=== PATIENT | female | born 1945 | race Caucasian/White ===

== ENCOUNTER 2020-12-30 17:18 | Emergency (ER) | payer MEDICARE ==
--- NOTE | 2020-12-30 18:52 | EDM.PDOC ---
ED HPI GENERAL MEDICAL PROBLEM - General Chief Complaint: ENT Problem Stated Complaint: NOSE BLEED Time Seen by Provider: 12/30/20 18:35 Source of Information: Reports: Patient History Limitations: Reports: No Limitations - History of Present Illness INITIAL COMMENTS - FREE TEXT/NARRATIVE: 75-year-old female with recurring left-sided epistaxis had a cauterization done at the clinic this morning. She had a recurrence of bleeding this afternoon that she did get stopped, but she went into the clinic to have it looked at to make sure everything was okay and they sent her to the emergency room. Onset: Unknown/Unsure Duration: Other (Nosebleeds have been chronic, increased in the last month) Location: Reports: Other (Left nares) Associated Symptoms: Reports: No Other Symptoms. Denies: Chest Pain, Shortness of Breath - Related Data Allergies Allergy/AdvReac Type Severity Reaction Status Date / Time codeine Allergy Hallucinati Verified 12/30/20 18:26 ons Home Meds: Home Meds Lovastatin 10 mg PO BEDTIME 12/30/20 [History] lisinopriL [Lisinopril] 10 mg PO DAILY 12/30/20 [History] Past Medical History HEENT History: Reports: Epistaxis, Impaired Vision Cardiovascular History: Reports: High Cholesterol, Hypertension [employer] History: Reports: Polycystic Ovaries, - Past Surgical History Female Surgical History: Reports: Section Musculoskeletal Surgical History: Reports: Arthroscopic Knee Social & Family History - Tobacco Use Tobacco Use Status *Q: Never Tobacco User ED ROS ENT - Review of Systems Review Of Systems: See Below Constitutional: Denies: Fever, Chills HEENT: Reports: Other (Left-sided epistaxis, responded to pressure) ED EXAM, ENT - Physical Exam Exam: See Below Exam Limited By: No Limitations General Appearance: Alert, No Apparent Distress Ears: Other (Exam of the nares shows no active bleeding, the left nares does have recent cauterization on the medial aspect.) Head: Atraumatic Respiratory/Chest: No Respiratory Distress, Lungs Clear Course - Vital Signs Last Recorded V/S: Last Vital Signs Temp 98.0 F 12/30/20 18:34 Pulse 94 12/30/20 18:34 Resp 16 12/30/20 18:34 BP 170/108 H 12/30/20 18:34 Pulse Ox 94 L 12/30/20 18:34 Departure - Departure Time of Disposition: 18:59 Disposition: Home, Self-Care 01 Clinical Impression: Left-sided epistaxis - Discharge Information Instructions: Nosebleed, [id number] Referrals: Amanda Knox PA-C [Primary Care Provider] - Forms: ED Department Discharge Care Plan Goals: Reapply pressure if needed if bleeding recurs, return if bleeding is persistent despite efforts to get it stopped. Sepsis Event Note (ED) - Evaluation Sepsis Screening Result: No Definite Risk
== END 2020-12-30 18:59 | disposition home or self-care (01) ==
LOC: JP.ED 17:18
DX: R04.0 Epistaxis (principal); E78.00 Pure hypercholesterolemia, unspecified; I10 Essential (primary) hypertension; Z79.899 Other long term (current) drug therapy; Z88.5 Allergy status to narcotic agent
CPT/HCPCS: 99283

== ENCOUNTER 2022-01-23 09:52 | Emergency (ER) | payer MEDICARE ==
[2022-01-23] MEDS ORDERED: Aspirin 81 MG Tab.Chew PO ONE (10:58)
[2022-01-23 11:34] LABS: TROPONIN I HIGH SENSITIVITY 6.1 pg/mL (<=60.3)
== END 2022-01-23 12:31 | disposition home or self-care (01) ==
LOC: JP.ED 09:52
DX: R07.89 Other chest pain (principal); I10 Essential (primary) hypertension; Z79.899 Other long term (current) drug therapy; Z88.5 Allergy status to narcotic agent
CPT/HCPCS: 36415; 71046; 71046-26; 80048; 84484; 85025; 93005; 93010; 99282; 99285-25; A9270-GY

== ENCOUNTER 2023-02-20 16:21 | Emergency (ER) | payer MEDICARE ==
[2023-02-20] MEDS ORDERED: Acetaminophen 325 MG Tab PO ONE (17:09)
== END 2023-02-20 18:30 | disposition home or self-care (01) ==
LOC: JP.ED 16:21
DX: S82.831A Other fracture of upper and lower end of right fibula, initial encounter for closed fracture (principal); S80.211A Abrasion, right knee, initial encounter; E78.00 Pure hypercholesterolemia, unspecified; I10 Essential (primary) hypertension; Z79.02 Long term (current) use of antithrombotics/antiplatelets; Z79.899 Other long term (current) drug therapy; Z88.5 Allergy status to narcotic agent; Z86.16 Personal history of COVID-19; V18.0XXA Pedal cycle driver injured in noncollision transport accident in nontraffic accident, initial encounter
CPT/HCPCS: 73562; 73610; 99283; A9270